=== PATIENT | female | born 2000 | race Caucasian/White ===

== ENCOUNTER 2024-12-12 10:34 | Emergency (ER) | payer BC, SELFPAY ==
[2024-12-12 10:34] VITALS: BMI 28.3
[2024-12-12 11:03] VITALS: BP 130/90; PULSE 80; RESP 18; TEMP 36.7; O2SAT 97
--- NOTE | 2024-12-12 11:10 | PD.EDRME ---
Rapid Medical Screening Exam RME Arrival date/time: 12/12/24 10:34 Chief Complaint: Abdominal Pain Time Seen by Provider: 12/12/24 11:32 Vital signs: Vital Signs Temperature 98.0 F 12/12/24 11:03 Pulse Rate 80 12/12/24 11:03 Respiratory Rate 18 12/12/24 11:03 Blood Pressure 130/90 H 12/12/24 11:03 Pulse Oximetry (%) 97 12/12/24 11:03 Oxygen Delivery Method Room Air 12/12/24 11:03 97% room air pulse ox Vital signs reviewed by provider: Yes RME Narrative: 24-year-old female presents to the ED with complaint of left lower quadrant pain that began early this morning. Patient also complains of a headache.
[2024-12-12] MEDS: KETOROLAC INJ 30 MG/ML VIAL IVP (11:30)
--- NOTE | 2024-12-12 11:35 | PC.NURSE ---
Patient to er via ems with c/o RLQ pain 10/10 x 1 1/2 hrs sudden onset, skin is cool dry and pink new orders received.
--- NOTE | 2024-12-12 11:37 | PD.EDADULT ---
ED General RME/HPI General Chief complaint: Abdominal Pain Stated complaint: SHARP PAIN L) ABD X 1 HR Time Seen by Provider: 12/12/24 11:32 Arrival date/time: 12/12/24 10:34 CC: Left lower quadrant abdominal pain HPI ongoing for the past 2 hours also complaining of painful urination ongoing for 1 day. Patient has a history of similar events back in 2021, denies any nausea or vomiting diarrhea shortness of breath or difficulty breathing. No OTC medicines taken. RME / HPI RME / HPI narrative: 24-year-old female presents to the ED with complaint of left lower quadrant pain that began early this morning. Patient also complains of a headache. Related Data Previous Rx's ?Medication ?Instructions ?Recorded ibuprofen 600 mg tablet 600 mg PO Q6HR PRN PAIN #30 tabs 09/15/15 ondansetron HCl 4 mg tablet 4 mg PO Q6H PRN nausea and 08/19/20 (Zofran) vomiting #20 tabs meloxicam 7.5 mg tablet 7.5 mg PO QDAY #10 tabs 12/12/24 Allergies Allergy/AdvReac Type Severity Reaction Status Date / Time No Known Allergies Allergy Verified 12/12/24 10:36 Review of Systems Review of Systems Narrative Review of Systems: GEN: No fever, no chills, no weight loss EYES: No discharge, no visual changes, no pain HEENT: No ear pain, no congestion, no sore throat PULM: No shortness of breath, no cough, no congestion CV: No chest pain, no dyspnea on exertion, no palpitations GI: No nausea, no vomiting, no diarrhea, + pain, no constipation : No frequency, no urgency, no dysuria MUSC/SKEL: No joint pain, no back pain SKIN: No rash PSYCH: No hallucinations, no depression HEME/LYMPH: No easy bleeding or bruising tendencies NEURO: No weakness, no headache Past Medical History Past Medical History CARDIAC: Negative Cardiac Disorders RESPIRATORY: Negative Asthma GENITOURINARY: Negative Renal Disease ENDOCRINE: Negative Diabetes Mellitus Type 2 HEMATOLOGIC: Negative Sickle Cell Disease Social History SMOKING STATUS: Never smoker ED Exam Narrative Physical exam: [General: In mild discomfort but not in any acute distress Head normocephalic HEENT: Within acceptable limits Neck is supple nontender Chest equal chest rise nontender to palpation Respiratory: Clear to auscultation no wheezes crackles or rubs CV: Rate rhythm is regular no murmurs rubs or clicks Abdomen left lower quadrant abdominal pain no reflexive guarding or rebound tenderness. No masses positive bowel sounds all 4 quadrants Back: No CVA tenderness no spinous process tenderness from cervical spine thoracic and lumbar spine Skin: Intact no petechiae rash induration ulceration or crepitus Extremities: Moving all extremity against resistance cap refill less than 2 seconds neurosensory intact Neuro: Awake alert oriented x3 Glascow coma 15 no focal deficits] Course Quality Measures none Orders Category Date Time Status CT Screening X1 Care 12/12/24 11:13 Completed IV [Insert IV] NOW Care 12/12/24 11:30 Active US pelvic complete Stat Exams 12/12/24 12:10 Completed CBC Stat Lab 12/12/24 11:30 Completed Comprehensive Metabolic Panel Stat Lab 12/12/24 11:30 Completed HCG Qualitative,Urine Stat Lab 12/12/24 11:15 Completed Lipase Stat Lab 12/12/24 11:30 Completed Urinalysis Stat Lab 12/12/24 11:15 Completed Ketorolac Inj [Toradol Inj] Med 12/12/24 11:13 Discontinued 30 mg IVP X1 ONE Vital Signs Vital signs: Vital Signs Temperature 98.0 F 12/12/24 11:03 Pulse Rate 80 12/12/24 11:03 Respiratory Rate 18 12/12/24 11:03 Blood Pressure 130/90 H 12/12/24 11:03 Pulse Oximetry (%) 97 12/12/24 11:03 Oxygen Delivery Method Room Air 12/12/24 11:03 Discharge Plan Plan Patient Disposition: HOME (Self Care) Patient condition on transfer: Stable Prescriptions/Referrals Prescriptions/Med Rec: New meloxicam 7.5 mg tablet 7.5 mg PO QDAY Qty: 10 0RF No Action ibuprofen 600 MG tablet 600 mg PO Q6HR PRN (Reason: PAIN) Qty: 30 0RF ondansetron HCl [Zofran] 4 mg tablet 4 mg PO Q6H PRN (Reason: nausea and vomiting) Qty: 20 0RF Referrals: Marcin Resendez MD [Primary Care Provider] - In 1 week Problem List Clinical Impression: Ovarian cyst Patient/Caregiver Discharge Instructions Other Activity Instructions:: Take the medication as needed for temporary pain relief follow-up with your [employer]OP[employer]NAGER or primary care provider. Education Materials: ED Ovarian Cyst Print Language: Indian Stand Alone Forms: Su Award Info., Work/School Release, Patient Portal Info Letter PA/FUR COMBER Supervising Physician KEISHA/JAQUI Supervising Physician: Moses Pierre ENP, MD Attestation MD Attestation The patient was seen by the midlevel practitioner. I, the co-signing physician, was present during the entire ER visit. While I did not physically examine the patient, I was available for consultation as needed. I agree with the plan and documentation. MDM Clinical Information Provided by patient Medical Records Reviewed [facility] Meds/Rx Considered, not Ordered None Labs/Rad/Tests considered, not Ordered None Chronic Illness/Social Conditions which may negatively complicate care or outcome(s)-explain: None or not applicable EKG EKG not done Lab Interpretation Labs: none Lab(s) interpretation(s): CBC shows no leukocytosis no significant anemia or thrombocytopenia CMP shows no significant electrolyte imbalances other than a glucose of 110 no transaminitis or T. bili elevation Urine is negative for urinary tract infection Urine is negative Lipase is negative Imaging Provider imaging interpretation(s): Ultrasound shows a simple left ovarian cyst probable source of the pain. Medication Administration(s) Medication Administration History Discontinued Medications Ketorolac Tromethamine (Ketorolac Inj 30 Mg/Ml Vial) 30 mg IVP X1 ONE Stop: 12/12/24 11:14 Last Admin: 12/12/24 11:30 Dose: 30 mg Documented By: ZHANNA Diagnosis Differential diagnosis: Ovarian cyst UTI pyelonephritis Dispositon Disposition: Discharge Home
[2024-12-12 11:38] LABS: Collection Type, Urine Clean Catch
[2024-12-12 11:41] LABS: Basophils # (Auto) 0.0 Thou/mm3 (0.0-0.2); Basophils % (Auto) 1 % (0-2.5); Eosinophils # (Auto) 0.1 Thou/mm3 (0.0-0.5); Eosinophils % (Auto) 1 % (0-10); Hematocrit 35.3 % (36.0-46.0); Hemoglobin 12.5 g/dL (12.0-16.0); Immature Granulocytes Auto 0.02 Thou/mm3 (0.00-0.00); Lymphocytes # (Auto) 1.7 Thou/mm3 (1.0-4.8); Lymphocytes % (Auto) 29 % (10-50); Mean Corpuscular HGB Conc 35.4 g/dl (31.0-37.0); Mean Corpuscular Hemoglobin 31.8 pg (25.0-35.0); Mean Corpuscular Volume 90 fL (80-100); Monocytes # (Auto) 0.4 Thou/mm3 (0.0-0.8); Monocytes % (Auto) 7 % (0-12); Neutrophils # (Auto) 3.6 Thou/mm3 (1.8-7.7); Neutrophils % (Auto) 62 % (37-80); Nucleated Red Blood Cell # 0.00 Thou/mm3 (0.00-0.00); Nucleated Red Blood Cell % 0 /100 WBC (0); Platelet Count 198 Thou/mm3 (140-440); RDW Standard Deviation 39.3 fL (36.4-46.3); Red Blood Count 3.93 Miln/mm3 (4.00-5.20); White Blood Count 5.7 Thou/mm3 (3.6-11.0)
[2024-12-12 11:48] LABS: Bilirubin,Urine Negative (Negative); Blood,Urine Trace (Negative); Clarity,Urine Clear (Clear/Hazy); Color,Urine Lt-Yellow (Lt Yel-Yel); Glucose, Urine Negative (Negative); Ketones,Urine Negative (Negative); Leukocyte Esterase,Urine Negative (Negative); Nitrite,Urine Negative (Negative); PH,Urine 6.5 (5.0-7.0); Protein,Urine Negative (Neg - Trace); RBC,Urine 1 /hpf (0-3); Specific Gravity,Urine 1.010 (1.001-1.035); Squamous Epithelial Cell,Urine 6 /hpf (0-5); Urobilinogen,Urine Negative mg/dL (0.0-1.0); WBC,Urine 2 /hpf (0-5)
[2024-12-12 12:00] LABS: Alanine Aminotransferase 20 U/L (10-49); Albumin, Serum 4.3 gm/dL (3.5-5.0); Albumin/Globulin Ratio 1.9 (1.2-2.2); Alkaline Phosphatase 53 U/L (46-116); Anion Gap 7 (7-16); Aspartate Amino Transferase 16 U/L (0-34); BUN/Creatinine Ratio 13 Ratio (12-20); Bilirubin,Total 0.3 mg/dL (0.3-1.2); Blood Urea Nitrogen 13 mg/dL (9-23); Calcium 9.9 mg/dL (8.3-10.6); Calcium (Corrected) 9.9 mg/dL (8.5-10.1); Carbon Dioxide 25.9 mMol/L (20.0-31.0); Chloride 107 mMol/L (98-107); Creatinine (Component) 1.0 mg/dL (0.6-1.3); Estimated Creatinine Clearance 96.4 mL/min (>60); Globulin 2.3 gm/dL (2.3-3.5); Glucose 110 mg/dL (74-106); Lipase 51 U/L (12-53); Osmolality,Calculated 280 (275-295); Potassium 3.7 mMol/L (3.4-5.1); Sodium 140 mMol/L (136-145); Total Protein 6.6 gm/dL (5.7-8.2); eGFR > 60 See Note
--- NOTE | 2024-12-12 12:10 | XR_ITS ---
Examination: Pelvic ultrasound, transabdominal, complete Technique: Transabdominal ultrasound of the pelvis performed using grayscale imaging Date and time of exam: December 17, 2024 1224 hours INDICATIONS: Onset of pelvic pain today FINDINGS: Uterus 5.9 cm endometrial stripe 0.3 cm No uterine mass or intrauterine gestation Right ovary 3.5 cm arterial flow Left ovary 3.7 cm arterial flow 23 x 11 x 12 mm simple cyst IMPRESSION: Left ovarian simple cyst 23 x 11 x 12 mm
[2024-12-12 12:13] LABS: HCG Qualitative,Urine Negative
[2024-12-12 13:01] VITALS: BP 120/84; PULSE 81; RESP 16; TEMP 36.7; O2SAT 98
--- NOTE | 2024-12-12 13:02 | PC.NURSE ---
Patient awaiting u/s, called tech states she is doing a procedure will come to take patient to u/s next, patient made aware.
--- NOTE | 2024-12-12 13:20 | PC.NURSE ---
Patient gone to u/s via wheelchair.
[2024-12-12 14:45] VITALS: BP 122/80; PULSE 80; RESP 16; O2SAT 98
== END 2024-12-12 14:45 | disposition home or self-care (01) ==
PROVIDERS: Physician Assistant; Emergency Provider Family Medicine; PCP Pediatrics
DX: N83.292 Other ovarian cyst, left side (principal)
CPT/HCPCS: 36415; 76856; 80053; 81001; 81025; 83690; 85025; 96374; 99283; J1885